=== PATIENT | female | born 1955 | race Caucasian/White ===

== ENCOUNTER 2018-01-17 17:33 | Emergency (ER) | payer BC ==
[~2018-01-17] VITALS: Ht 160 cm; Wt 62.6 kg
[2018-01-17 18:16] VITALS: Ht 160 cm; Wt 62.6 kg
[2018-01-17 19:42] LABS: BASOPHIL % 0.4 % (0-2); PLATELET COUNT 247 x10^3mcL (130-400); RED CELL DISTRIBUTION WIDTH 13.6 % (11.5-14.5)
[2018-01-17 19:48] LABS: CALCIUM 9.4 mg/dL (8.5-10.1); CARBON DIOXIDE 31.2 mmol/L (21-32); CHLORIDE SERUM 107 mmol/L (98-107); CREATININE SERUM 0.9 mg/dL (0.6-1.0); GFR1 > 60 mL/min; GLUCOSE SERUM 109 mg/dL (74-106); POTASSIUM SERUM 3.9 mmol/L (3.5-5.1); SODIUM SERUM 143 mmol/L (136-145)
[2018-01-17 19:53] LABS: ALBUMIN 3.7 g/dL (3.4-5.0); ALKALINE PHOSPHATASE 62 U/L (46-116); ALT/SGPT 33 U/L (14-59); AST/SGOT 28 U/L (15-37); BILIRUBIN TOTAL 0.59 mg/dL (0.20-1.00)
[2018-01-17 20:33] VITALS: BP 146/106
== END 2018-01-17 20:33 | disposition home or self-care (01) ==
LOC: ED 17:33
PROVIDERS: Emergency Medicine
DX: R42 Dizziness and giddiness (principal); E78.00 Pure hypercholesterolemia, unspecified; M81.8 Other osteoporosis without current pathological fracture
CPT/HCPCS: 36415

== ENCOUNTER 2018-08-14 14:05 | Emergency (ER) | payer BC ==
[~2018-08-14] VITALS: Ht 160 cm; Wt 61.2 kg
[2018-08-14 14:16] VITALS: Ht 160 cm; Wt 61.2 kg
[2018-08-14 15:43] VITALS: BP 167/99
== END 2018-08-14 16:09 | disposition home or self-care (01) ==
LOC: ED 14:05
DX: S52.571A Other intraarticular fracture of lower end of right radius, initial encounter for closed fracture (principal); S52.601A Unspecified fracture of lower end of right ulna, initial encounter for closed fracture; M81.0 Age-related osteoporosis without current pathological fracture; W18.09XA Striking against other object with subsequent fall, initial encounter; Y93.89 Activity, other specified; Y92.89 Other specified places as the place of occurrence of the external cause; Y99.8 Other external cause status
CPT/HCPCS: J1885

== ENCOUNTER 2018-11-21 19:11 | Emergency (ER) | payer BC ==
[~2018-11-21] VITALS: Ht 160 cm; Wt 64.9 kg
[2018-11-21 19:21] VITALS: Ht 160 cm; Wt 64.9 kg
[2018-11-21 20:46] VITALS: BP 90/54
== END 2018-11-21 20:46 | disposition home or self-care (01) ==
LOC: ED 19:11
DX: S52.502A Unspecified fracture of the lower end of left radius, initial encounter for closed fracture (principal); S52.602A Unspecified fracture of lower end of left ulna, initial encounter for closed fracture; E78.00 Pure hypercholesterolemia, unspecified; M81.0 Age-related osteoporosis without current pathological fracture; W01.0XXA Fall on same level from slipping, tripping and stumbling without subsequent striking against object, initial encounter; Y93.89 Activity, other specified; Y92.89 Other specified places as the place of occurrence of the external cause; Y99.8 Other external cause status
CPT/HCPCS: J2270; Q0092

== ENCOUNTER 2018-11-26 15:50 | Emergency (ER) | payer OTHER ==
[~2018-11-26] VITALS: Ht 160 cm; Wt 64.0 kg
[2018-11-26 15:59] VITALS: BP 125/74; Ht 160 cm; Wt 64.0 kg
== END 2018-11-26 16:49 | disposition home or self-care (01) ==
LOC: ED 15:50
DX: S62.102A Fracture of unspecified carpal bone, left wrist, initial encounter for closed fracture (principal); E78.00 Pure hypercholesterolemia, unspecified; M81.0 Age-related osteoporosis without current pathological fracture; X58.XXXA Exposure to other specified factors, initial encounter; Y93.89 Activity, other specified; Y92.89 Other specified places as the place of occurrence of the external cause; Y99.8 Other external cause status